=== PATIENT | male | born 1975 | race Two or more races ===

== ENCOUNTER 2018-02-20 04:54 | Inpatient (IN) ==
--- NOTE | 2018-02-20 10:19 | ED ---
HPI General Chief complaint: Psychiatric Symptoms Stated complaint: psychscreen/Transfer from [facility] Time Seen by Provider: 02/20/18 08:34 History of Present Illness HPI narrative: 42-year-old male is brought to the ED in transfer from [facility] emergency department. Patient is under Buitrago act. He has been transferred to the psych J pod for psychiatric evaluation. The patient states that he is having suicidal ideations and he cut his left wrist 2 days ago. Denies alcohol or drug use. Denies any physical complaints. Related Data Home Medications Medication Instructions Recorded Confirmed No Known Home Medications 02/20/18 02/20/18 Allergies Allergy/AdvReac Type Severity Reaction Status Date / Time No Known Allergies Allergy Verified 02/20/18 02:49 Review of Systems ROS: all other systems reviewed are negative [facility] Social History Social History Substance History: Active Abuse Second Hand Smoke Exposure: Yes Smoking Status: Current every day smoker Tobacco Type: Cigarettes How Often Do You Have a Drink Containing Alcohol: Monthly or less Recent Travel in [facility] within the Last 8 Weeks: No Recent Out of Country Travel within the Last 8 Weeks: No Exam Narrative Exam Narrative: GENERAL: Well-nourished and well-developed pleasant patient in no acute distress who is nontoxic appearing. SKIN: Warm and dry. Healing 2 cm wound to left volar wrist with no erythema, warmth, swelling, bleeding, tendon injury. HEAD: Normocephalic and atraumatic. EYES: No injection, drainage, or hyphema noted. PERRLA. EOMI. ENT: No nasal drainage noted. Oropharynx is clear. NECK: Supple and the trachea is midline. CARDIOVASCULAR: Regular rate and rhythm. RESPIRATORY: Breath sounds are equal bilaterally with no accessory muscle use, wheezing, rhonchi, or crackles. GASTROINTESTINAL: Abdomen is soft, non-tender, and nondistended. MUSCULOSKELETAL: No obvious deformities, swelling, cyanosis, or ecchymosis is present throughout the upper and lower extremities. Patient has full range of motion without any signs of neurovascular compromise. Distal pulses are 2+ throughout. NEUROLOGICAL: Awake, alert, and oriented. Normal speech and gait. Cranial nerves are grossly intact. Course Initial Documented Vital Signs Temperature 98.7 F 02/20/18 05:18 Pulse Rate 75 02/20/18 05:18 Respiratory Rate 18 02/20/18 05:18 Blood Pressure 124/78 02/20/18 05:18 Pulse Oximetry 99 02/20/18 05:18 Last Documented Vital Signs Temperature 98.7 F 02/20/18 05:18 Pulse Rate 75 02/20/18 05:18 Respiratory Rate 18 02/20/18 05:18 Blood Pressure 124/78 02/20/18 05:18 Pulse Oximetry 99 02/20/18 05:18 Medical Decision Making MDM Narrative Medical decision making narrative: Patient presents under a Buitrago act. Physical examination and vital signs are essentially unremarkable. Patient has no medical complaints to report. Psych screen has been ordered. The patient had labs unremarkable with the exception of positive marijuana urine tox. The patient is medically cleared for psychiatric evaluation and disposition. Medical Screen Exam Complete: Yes Emergency Medical Condition: Yes Differential Diagnosis Differential Diagnosis: Differential: Depression versus adjustment reaction versus anxiety versus PTSD versus psychosis NOS versus mood disorder NOS versus substance induced mood disorder versus ODD versus adjustment reaction versus schizophrenia versus bipolar disorder versus schizoaffective versus electrolyte abnormality versus dementia versus malingering. Discharge Plan Discharge Disposition Patient Disposition: Sign Out(ED Internal Use Only) Discharge Details Diagnosis: Suicide attempt, initial encounter, Laceration of skin of left wrist Physicians Team ED Provider: Amina Tamayo ED Midlevel Provider: Priya Duncan Primary Care Provider: UNKNOWN, Rxs /Orders / Referrals /Forms Prescriptions: No Action No Known Home Medications RF: 0 Discharge Interventions Interventions: Vital Signs Last Done: 02/20/18 05:18 Status ED Status: With Doctor
[2018-02-20] MEDS ORDERED: Aluminum/Magnesium/Simethacone Susp 30 ML UDC PO PRN (12:00)
[2018-02-20] MEDS ORDERED: Acetaminophen 500 MG Tablet PO PRN (12:07)
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
[2018-02-20] MEDS: Sertraline 50 MG Tablet PO SCH (14:13)
[2018-02-21 07:27] LABS: Calcium 8.5 mg/dL (8.5-10.1); Carbon Dioxide 22.2 meq/L (21.0-32.0); Potassium 4.1 meq/L (3.5-5.1)
[2018-02-21 07:31] LABS: Chol/HDL Ratio 3.16 Ratio; HDL Cholesterol 48.4 mg/dL (40.0-60.0)
[2018-02-21] MEDS: Sertraline 50 MG Tablet PO SCH (10:00)
[2018-02-21 11:47] LABS: Hemoglobin A1c 4.9 % (4.3-6.0)
--- NOTE | 2018-02-21 11:53 | ECG ---
Date Performed: 02/21/2018 Time Performed: 10:23:47 PTAGE: 42 years EKG: Sinus rhythm WITH SINUS ARRHYTHMIA VOLTAGE CRITERIA FOR LVH ABNORMAL ECG NO PREVIOUS TRACING DOCTOR: Davian Castañeda Interpretating Date/Time 02/21/2018 11:50:35
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
[2018-02-22] MEDS: Sertraline 50 MG Tablet PO SCH (09:06)
--- NOTE | 2018-02-22 14:30 | P.PNPSY ---
Subjective Chief Complaint: Major depressive disorder Remarks: Patient seen for follow-up, chart reviewed, patient discussed with nursing staff ; we reviewed the patient's mood, thoughts, and behaviors from overnight and this morning. Nursing reports that the patient slept 7 hours overnight and has no complaints of suicidal ideations and no complaints of hallucinations. The patient's lacerations seem to be healing but nursing requests bacitracin ointment to be applied daily. Patient was seen at bedside after lunch and he reports tolerability of current medications but still not sleeping well. We discussed risks benefits side effects and alternatives and he chooses to try trazodone as needed for sleep. Review of Systems All other systems reviewed negative except as stated in HPI Mental Status Examination Appearance: Appropriate, Disheveled (Slightly) Consciousness: Alert Orientation: x4 Speech: Unremarkable Language: Adequate Fund of Knowledge: Adequate Attention and Concentration: Adequate Memory: Unremarkable Mood: Sad Affect: Other (Decreased range and intensity) Thought Process & Associations: Intact Thought Content: Hallucinations (None elicited on exam today) Hallucination Type: None Delusion Type: None Suicidal Ideation: No (Denying at present however, a self-inflicted laceration to the left wrist from 2 days ago) Suicidal Plan: No Suicidal Intention: No Homicidal Ideation: No Homicidal Plan: No Homicidal Intention: No Insight: Poor Judgment: Impulsive Assessment and Plan - Assessment (1) Major depressive disorder, single episode, severe w psychotic behavior Code(s): F32.3 - Major depressive disorder, single episode, severe with psychotic features Status: Acute - Plan Plan: 02/21/2018 estimated LOS: [7] days. Patient to be admitted to a locked psychiatric unit for further evaluation and treatment as deemed necessary. He has capacity and has agreed to initiating psychotropics to stabilize his current symptoms. Patient has signed consent to be started on sertraline to target his depression. Will be initiated at 50 mg by mouth once daily. He also has signed consent for as needed hydroxyzine by mouth every 6 hours as needed for anxiety and diphenhydramine 50 mg by mouth as needed at bedtime for insomnia. I agree also with the above dictation by nurse practitioner Francine. Though I will add Resporal 1 mg twice daily to the regimen to address his psychotic features. 02/22/2018: Fair response to initial inpatient treatment, the patient is denying active suicidal ideations and denying active symptoms of psychosis and he is tolerating the start of medications. Continue inpatient observation and stabilization with current treatment plan; Risperdal 1 mg twice a day for psychosis, Zoloft 50 mg once a day for depression.. Start trazodone 50 mg at bedtime as needed for insomnia. Bacitracin antibiotic ointment ordered to be applied twice a day to lacerations. Justification for Continued Inpatient Stay: Patient remains an elevated risk for self-harm and will require further inpatient stabilization and preparation of a safe discharge plan. Moving patient to a less restrictive environment at this time may result in decompensation. Request Healthcare Surrogate/Guardian Advocate?: No
[2018-02-22] MEDS ORDERED: traZODone 50 MG Tablet PO PRN (21:00)
[2018-02-23] MEDS: Sertraline 50 MG Tablet PO SCH (09:10)
--- NOTE | 2018-02-23 12:05 | P.PNPSY ---
Subjective Chief Complaint: Major depressive disorder Remarks: This is a request for second opinion. Admission note was reviewed and I agree with the history. Patient was seen and case was discussed with nursing. Patient minimizes his suicide attempt. He is very guarded during the interview. Thought processes delayed and mildly disorganized. He admits to having hallucinations during this episode of cutting telling him to take his head off. However he denies a history of said hallucinations at any other point in his life. At this time he denies any auditory or visual hallucinations. Patient appears internally preoccupied. He denies suicidal or homicidal ideation intent or plan. Denies any impulses to cut. Perseverative on discharge Review of Systems All other systems reviewed negative except as stated in HPI Mental Status Examination Appearance: Appropriate, Disheveled (Slightly) Consciousness: Alert Orientation: x4 Speech: Unremarkable Language: Adequate Fund of Knowledge: Adequate Attention and Concentration: Adequate Memory: Unremarkable Mood: Sad Affect: Blunt Thought Process & Associations: Intact Thought Content: Hallucinations (None elicited on exam today) Hallucination Type: None Delusion Type: None Suicidal Ideation: No (Denying at present however, a self-inflicted laceration to the left wrist from 2 days ago) Suicidal Plan: No Suicidal Intention: No Homicidal Ideation: No Homicidal Plan: No Homicidal Intention: No Insight: Poor Judgment: Impulsive Assessment and Plan - Assessment (1) Major depressive disorder, single episode, severe w psychotic behavior Code(s): F32.3 - Major depressive disorder, single episode, severe with psychotic features Status: Acute - Plan Plan: I agree with the first opinion to continue petition. Criteria include suicide attempt. Justification for Continued Inpatient Stay: Patient would decompensate in a less restrictive setting Request Healthcare Surrogate/Guardian Advocate?: No
[2018-02-24 05:54] VITALS: BP 116/71; PULSE 77; RESP 16; TEMP 98.3; O2SAT 99
[2018-02-24] MEDS: Sertraline 50 MG Tablet PO SCH (09:30)
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
--- NOTE | 2018-02-24 13:57 | P.TTN ---
- Patient Problems Problems: 1. Discharge planning 2. Medication compliance 3. Knowledge deficit 4. Lack of coping skills - Progress Toward Goals Provider Present: Dr. Jorgito Seaman (Dr. Seaman is titrating medications, patient remains for further stabilization.) Psychiatric Counselors Present: Shaquille Leon Jr., [facility] (Counsleor will meet with the patient today to discuss discharge plan.) Group Spec/RT/OT/ROBLES Present: MARGARET Barger (Patient attends groups and is appropriate at this time.) - Documentation Teaching Recipient: Patient
== END 2018-02-24 15:15 | disposition home or self-care (01) ==
LOC: NEPJ 04:54 → NEDA 12:08 → H260 15:57
PROVIDERS: ADMIT Psychiatry & Neurology Psychiatry; ATTEND Psychiatry & Neurology Psychiatry